=== PATIENT | female | born 1950 | race Hispanic/Latino ===

== ENCOUNTER → 2021-06-24 | Outpatient (CLI) | payer OTHER, MEDICARE | END | disposition home or self-care (01) | LOC: RAH 08:50 | PROVIDERS: ATTEND Nurse Practitioner Family | DX: M85.861 Other specified disorders of bone density and structure, right lower leg (principal) | CPT/HCPCS: 73562 ==

== ENCOUNTER → 2022-01-29 | Outpatient (CLI) | payer OTHER, MEDICARE | END | disposition home or self-care (01) | LOC: RAH 08:22 | PROVIDERS: ATTEND Internal Medicine | DX: M47.816 Spondylosis without myelopathy or radiculopathy, lumbar region (principal); M54.50 Low back pain, unspecified; M47.817 Spondylosis without myelopathy or radiculopathy, lumbosacral region | CPT/HCPCS: 72100; 73502 ==

== ENCOUNTER → 2022-10-12 | Outpatient (CLI) | payer OTHER, MEDICARE | END | disposition home or self-care (01) | LOC: RAH 08:22 | PROVIDERS: ATTEND Internal Medicine | DX: S43.005D Unspecified dislocation of left shoulder joint, subsequent encounter (principal); S46.012D Strain of muscle(s) and tendon(s) of the rotator cuff of left shoulder, subsequent encounter; M19.012 Primary osteoarthritis, left shoulder; M25.712 Osteophyte, left shoulder; M25.512 Pain in left shoulder; X58.XXXD Exposure to other specified factors, subsequent encounter | CPT/HCPCS: 73221 ==

== ENCOUNTER → 2023-03-29 | Outpatient (CLI) | payer OTHER, MEDICARE | END | disposition home or self-care (01) | LOC: LAB 09:54 | PROVIDERS: ATTEND Internal Medicine | DX: R07.81 Pleurodynia (principal); Z90.49 Acquired absence of other specified parts of digestive tract | CPT/HCPCS: 71100 ==

== ENCOUNTER 2023-07-29 06:53 | Day surgery (SDC) | payer OTHER, MEDICARE ==
[2023-07-29] VITALS (10 sets, daily range): BP systolic 110–139; BP diastolic 55–71; PULSE 60–69; RESP 15–16
[~2023-07-29] VITALS: Ht 152.4 cm; Wt 86.8 kg
[~2023-07-29 06:53] MED LIST: AEC81 PO; ATOR40TA69 PO; EMPA25TA PO; LISI2.5T13 PO; SITA1TAB6 PO
[2023-07-29] MEDS ORDERED: PROPOFOL 10 MG/ML 20ML VIAL IV ONE (10:30)
== END 2023-07-29 12:25 | disposition home or self-care (01) ==
LOC: DAH 06:53 → ENDO 06:53
PROVIDERS: ATTEND Internal Medicine Gastroenterology
DX: K22.89 Other specified disease of esophagus (principal); I10 Essential (primary) hypertension; E11.9 Type 2 diabetes mellitus without complications; M19.90 Unspecified osteoarthritis, unspecified site; E78.5 Hyperlipidemia, unspecified; K57.30 Diverticulosis of large intestine without perforation or abscess without bleeding; Z79.01 Long term (current) use of anticoagulants; Z86.010 Personal history of colon polyps; Z90.49 Acquired absence of other specified parts of digestive tract; Z98.890 Other specified postprocedural states; Z80.0 Family history of malignant neoplasm of digestive organs; Z79.899 Other long term (current) drug therapy
CPT/HCPCS: 43237; 82948 ×2; J2704; A4620; A4215 ×2; A4223; A7002; A4222; A4221; A4663; A4216; J7030; A4606; J3490

== ENCOUNTER → 2023-10-12 | Outpatient (CLI) | payer OTHER, MEDICARE | END | disposition home or self-care (01) | LOC: RAH 08:51 | PROVIDERS: ATTEND Internal Medicine | DX: M47.816 Spondylosis without myelopathy or radiculopathy, lumbar region (principal); M25.752 Osteophyte, left hip; M16.12 Unilateral primary osteoarthritis, left hip; M25.552 Pain in left hip; M54.32 Sciatica, left side | CPT/HCPCS: 72100; 73502 ==

== ENCOUNTER → 2024-05-30 | Outpatient (CLI) | payer OTHER, MEDICARE | END | disposition home or self-care (01) | LOC: RAH 09:18 | PROVIDERS: ATTEND Internal Medicine | DX: S33.140A Subluxation of L4/L5 lumbar vertebra, initial encounter (principal); M47.26 Other spondylosis with radiculopathy, lumbar region; M46.1 Sacroiliitis, not elsewhere classified; X58.XXXA Exposure to other specified factors, initial encounter; Y93.89 Activity, other specified; Y92.89 Other specified places as the place of occurrence of the external cause; Y99.8 Other external cause status | CPT/HCPCS: 72100; 72200 ==

== ENCOUNTER → 2025-02-23 | Outpatient (CLI) | payer MEDICARE ==
--- NOTE | 2025-02-23 10:24 | HMCIMG ---
CHEST 2VWS REASON: Type 2 diabetes mellitus with hyperglycemia COMPARISON: None FINDINGS: Two views of the chest were obtained. Lungs are clear. Heart size is normal. There is early uncoiling atherosclerotic change of thoracic aorta. There is no pulmonary vascular congestion. Mediastinum and bony thorax appear unremarkable. Bony thorax and is osteopenia. 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 There are surgical clips in the right upper quadrant from prior cholecystectomy. IMPRESSION: No evidence of airspace consolidation or pulmonary venous congestion.
== END | disposition home or self-care (01) ==
LOC: RAH 09:07
DX: E11.65 Type 2 diabetes mellitus with hyperglycemia (principal); I70.0 Atherosclerosis of aorta; M85.88 Other specified disorders of bone density and structure, other site; M19.012 Primary osteoarthritis, left shoulder; M19.011 Primary osteoarthritis, right shoulder; Z90.49 Acquired absence of other specified parts of digestive tract
CPT/HCPCS: 71046